=== PATIENT | female | born 1930 | race Caucasian/White ===

== ENCOUNTER 2017-02-07 12:07 | Observation (INO) ==
--- NOTE | 2017-02-07 13:17 | Emergency Department Note ---
Disposition Clinical Impression: Colonic mass Abdominal pain Qualifiers: Abdominal location: unspecified location Qualified Code(s): R10.9 - Unspecified abdominal pain Disposition: Admitted As Inpatient Condition: Fair Referrals: Sugar Reyes DO [Primary Care Provider] - Forms: ED Satisfaction Letter Time of Disposition: 17:06 Nausea/Vomiting/Diarrhea HPI - General Chief complaint: ED Nausea/Vomiting/Diarrhea Stated complaint: No BM since wednesday// Nausea Time Seen by Provider: 02/07/17 12:54 Source: patient Mode of arrival: ambulatory Limitations: no limitations Nursing Notes Reviewed: Yes Vital Signs Reviewed: Yes - History of Present Illness HPI Narrative: 87-year-old states she hasn't had a bowel movement since Wednesday which is 2 days ago in that she's had nausea and vomited once. Daughter states that the patient takes pain medication for her back and that she has intermittent problems with constipation. Patient did take a laxative last night and a suppository without improvement. Pt Subjective Complaint: abdominal pain, other (Constipation) Onset (ago): Just [employer] Quality: cramping Consistency: intermittent Improves with: nothing - Related Data Home Medications Medication Instructions Recorded Confirmed Fluticasone Propionate Nasal 50 mcg NS DAILY 01/16/17 01/16/17 [Flonase] Lisinopril [Zestril] 20 mg PO DAILY 01/16/17 01/16/17 Loratadine [Claritin] 10 mg PO DAILY 01/16/17 01/16/17 Pantoprazole Sodium 40 mg PO BID 01/16/17 01/16/17 Potassium Chloride [K-Tab ER] 20 meq PO TID 01/16/17 01/16/17 hydroCHLOROthiazide 25 mg PO DAILY 01/16/17 01/16/17 [Hydrochlorothiazide] Previous Rx's Medication Instructions Recorded OxyCODONE/APAP 5/325 [Percocet 1 each PO Q8HR PRN #12 tablet 01/16/17 5/325 MG] Ondansetron HCl [Zofran] 4 mg PO Q6H PRN #10 tablet 01/31/17 Allergies Allergy/AdvReac Type Severity Reaction Status Date / Time aspirin Allergy Hives Verified 01/31/17 13:37 Penicillins Allergy Hives Verified 01/31/17 13:37 ibuprofen AdvReac Itching Verified 01/31/17 13:37 tramadol AdvReac Nausea Verified 01/31/17 13:37 All systems ED: reviewed and negative except as stated. Constitutional: Denies: fever, chills, weakness, weight change Eyes: Denies: eye pain, eye discharge, vision change ENT ED: Denies: ear pain, throat pain, dental pain, hearing loss, epistaxis, congestion, dysphagia Cardiovascular: Denies: chest pain, palpitations, dyspnea on exertion, edema, syncope Respiratory: Denies: cough, dyspnea, wheezes, hemoptysis, stridor Gastrointestinal: Reports: abdominal pain, constipation. Denies: nausea, vomiting, diarrhea, hematemesis, melena, hematochezia Genitourinary: Denies: dysuria, frequency, hematuria, discharge Musculoskeletal: Denies: back pain, neck pain, arthralgia, myalgia Integumentary: Denies: rash, abrasion, lesions Neurological: Denies: headache, weakness, numbness, paresthesias, confusion, abnormal gait, vertigo Psychiatric: Denies: anxiety, depression, suicidal thoughts, homicidal thoughts , auditory hallucinations, visual hallucinations Endocrine: Denies: fatigue Hematological/Lymphatic: Denies: easy bleeding, easy bruising Allergic/Immunologic: Denies: facial swelling, urticaria Past Medical History - Past Medical History Medical history: Reports: cancer, GERD, hyperlipidemia, hypertension Psychiatric history: Reports: anxiety, depression - Social History Smoking Status: Never smoker Smokeless Tobacco Status: No Alcohol use: Reports: none Drug use: Reports: none Physical Exam - General Limitations: no limitations General appearance: alert - Head Head exam: atraumatic, normocephalic, normal inspection - Eye Eye exam: Present: normal appearance, PERRL, EOMI - ENT ENT exam: normal exam, normal oropharynx, mucous membranes moist - Neck Neck exam: Present: normal inspection, full ROM, trachea midline - Chest Chest inspection: Present: normal inspection, symmetric chest wall rise - Respiratory Respiratory exam: Present: normal lung sounds bilaterally - Cardiovascular Cardiovascular exam: Present: regular rate, normal rhythm, normal heart sounds - Abdominal Exam Abdominal exam: Present: soft, tenderness - Extremities Exam Extremities exam: Present: normal inspection, full ROM. Absent: tenderness, pedal edema - Expanded Lower Extremity Exam Neurovascular/Tendon exam: Absent: motor deficit, sensory deficit, tendon deficit - Back Exam Back exam: Present: normal inspection, full ROM. Absent: tenderness - Neurological Exam Neurological exam: Present: alert, oriented X3 - Psychiatric Psychiatric exam: Present: normal affect, normal mood - Skin Skin exam: Present: warm, dry, intact, normal color Course - Reevaluation(s) Reevaluation #1: 87-year-old comes in with abdominal pain not eating or drinking. Patient had constipation. CT scan does show thickening of the wall possible mass in the colon. The patient in light of the fact she's not eating or drinking will be admitted for IV fluids and further evaluation of her colon. Time: 17:05 - Consultations Consultation #1: Discussed with Dr. Lopez, admit Time: 17:06 Vital Signs Temperature 97.6 F 02/07/17 12:12 Pulse Rate 94 02/07/17 12:12 Respiratory Rate 18 02/07/17 12:12 Blood Pressure 172/91 02/07/17 12:12 O2 Sat by Pulse Oximetry 98 02/07/17 12:12 Temperature 97.6 F 02/07/17 12:12 Pulse Rate 69 02/07/17 16:54 Respiratory Rate 18 02/07/17 16:54 Blood Pressure 174/88 02/07/17 16:54 O2 Sat by Pulse Oximetry 98 02/07/17 16:54 Oxygen Delivery Oxygen Delivery Room Air Nausea/Vomiting/Diarrhea - Lab Data Lab results reviewed: Yes I reviewed the patient's lab results. Result diagrams: 02/07/17 13:29 02/07/17 13:29 Lab Results 02/07/17 02/07/17 02/07/17 Range/Units 13:29 13:29 13:29 WBC 9.4 (4.3-11.1) K/mcL RBC 3.98 (3.82-4.97) M/mcL Hgb 11.9 (11.5-15.4) g/dL Hct 34.2 L (35.3-44.9) % MCV 85.9 (83.0-100.0) fL MCH 29.9 (28.0-33.3) pg MCHC 34.8 (31.6-35.5) g/dL RDW 12.3 (11.5-14.5) % Plt Count 335 (140-400) K/mcL MPV 9.2 L (9.4-12.4) fL Immature Gran % 0.7 (0-4) % Seg Neutrophils % 77.1 % Lymphocytes % 14.1 % Monocytes % 7.7 % Eosinophils % 0.2 % Basophils % 0.2 % Neutrophils # 7.3 (1.6-8.9) K/mcL Lymphocytes # 1.3 (0.6-4.6) K/mcL Monocytes # 0.7 (0.0-1.3) K/mcL Eosinophils # 0.0 (0.0-0.6) K/mcL Basophils # 0.0 (0.0-0.2) K/mcL Sodium 127 L (136-145) mEq/L Potassium 3.4 L (3.5-4.5) mEq/L Chloride 92 L (98-109) mEq/L Carbon Dioxide 25 (19-29) mEq/L BUN 9 (7-20) mg/dL Creatinine 0.76 (0.57-1.11) mg/dL Est GFR ( Amer) > 60 (> 60) Est GFR (Non-Af Amer) > 60 (> 60) BUN/Creatinine Ratio 12 (6-26) Glucose 120 H (70-99) mg/dL Calculated Osmolality 264 L (280-300) Calcium 10.3 (8.6-10.8) mg/dL Total Bilirubin 0.4 (0.2-1.2) mg/dL Direct Bilirubin 0.2 (0.0-0.5) mg/dL Indirect Bilirubin 0.2 (0.0-1.2) mg/dL AST 14 (5-34) Units/L ALT 12 (0-55) Units/L Alkaline Phosphatase 64 (38-126) Units/L Serum Total Protein 6.6 (6.0-8.3) g/dL Albumin 3.3 L (3.5-5.0) g/dL Globulin 3.3 (2.4-3.5) g/dL Albumin/Globulin Ratio 1.0 L (1.1-2.2) Amylase 39 (25-125) Units/L Lipase 18 (8-78) Units/L Urine Color (Yellow) Urine Clarity (Clear) Urine pH (5.0-8.0) pH Units Ur Specific [place] (1.010-1.025) Urine Protein (Neg-Trace) mg/dL Urine Glucose (UA) (Normal) mg/dL Urine Ketones (Negative) mg/dL Urine Blood (Negative) Urine Nitrite (Negative) Urine Bilirubin (Negative) Urine Urobilinogen (Normal) mg/dL Ur Leukocyte Esterase (Negative) Ur Culture Indicated? (NO) 02/07/17 Range/Units 15:00 WBC (4.3-11.1) K/mcL RBC (3.82-4.97) M/mcL Hgb (11.5-15.4) g/dL Hct (35.3-44.9) % MCV (83.0-100.0) fL MCH (28.0-33.3) pg MCHC (31.6-35.5) g/dL RDW (11.5-14.5) % Plt Count (140-400) K/mcL MPV (9.4-12.4) fL Immature Gran % (0-4) % Seg Neutrophils % % Lymphocytes % % Monocytes % % Eosinophils % % Basophils % % Neutrophils # (1.6-8.9) K/mcL Lymphocytes # (0.6-4.6) K/mcL Monocytes # (0.0-1.3) K/mcL Eosinophils # (0.0-0.6) K/mcL Basophils # (0.0-0.2) K/mcL Sodium (136-145) mEq/L Potassium (3.5-4.5) mEq/L Chloride (98-109) mEq/L Carbon Dioxide (19-29) mEq/L BUN (7-20) mg/dL Creatinine (0.57-1.11) mg/dL Est GFR ( Amer) (> 60) Est GFR (Non-Af Amer) (> 60) BUN/Creatinine Ratio (6-26) Glucose (70-99) mg/dL Calculated Osmolality (280-300) Calcium (8.6-10.8) mg/dL Total Bilirubin (0.2-1.2) mg/dL Direct Bilirubin (0.0-0.5) mg/dL Indirect Bilirubin (0.0-1.2) mg/dL AST (5-34) Units/L ALT (0-55) Units/L Alkaline Phosphatase (38-126) Units/L Serum Total Protein (6.0-8.3) g/dL Albumin (3.5-5.0) g/dL Globulin (2.4-3.5) g/dL Albumin/Globulin Ratio (1.1-2.2) Amylase (25-125) Units/L Lipase (8-78) Units/L Urine Color Yellow (Yellow) Urine Clarity Clear (Clear) Urine pH 7.5 (5.0-8.0) pH Units Ur Specific [place] 1.010 (1.010-1.025) Urine Protein Negative (Neg-Trace) mg/dL Urine Glucose (UA) Normal (Normal) mg/dL Urine Ketones Negative (Negative) mg/dL Urine Blood Negative (Negative) Urine Nitrite Negative (Negative) Urine Bilirubin Negative (Negative) Urine Urobilinogen Normal (Normal) mg/dL Ur Leukocyte Esterase Negative (Negative) Ur Culture Indicated? NO (NO) - Radiology Data Radiology results reviewed: Yes I reviewed the patient's radiology results. Abdomen/Pelvis CT 02/07/17 13:19 IMPRESSION: 1. Anorectal wall thickening is unchanged and there is a moderate to large amount of rectal stool. Recommend disimpaction and correlation with endoscopy to exclude underlying mass. 2. Sigmoid diverticulosis without evidence for acute diverticulitis. D/ / Marcin Cosby MD / Marcin Cosby MD Interpreting Provider: Marcin Cosby MD
[2017-02-07] MEDS ORDERED: Ondansetron 4 MG/2 ML VIAL IVP ONE ×2 (13:37→16:07)
[2017-02-07 13:41] LABS: Basophils % 0.2 %; Eosinophils % 0.2 %; Hematocrit 34.2 % (35.3-44.9); Hemoglobin 11.9 g/dL (11.5-15.4); Immature Granulocytes % 0.7 % (0-4); Lymphocytes # 1.3 K/mcL (0.6-4.6); Lymphocytes % 14.1 %; Mean Corpuscular HGB Conc 34.8 g/dL (31.6-35.5); Mean Corpuscular Hemoglobin 29.9 pg (28.0-33.3); Mean Corpuscular Volume 85.9 fL (83.0-100.0); Mean Platelet Volume 9.2 fL (9.4-12.4); Monocytes # 0.7 K/mcL (0.0-1.3); Monocytes % 7.7 %; Neutrophils # 7.3 K/mcL (1.6-8.9); Platelet Count 335 K/mcL (140-400); Red Blood Count 3.98 M/mcL (3.82-4.97); Red Cell Distribution Width 12.3 % (11.5-14.5); Segmented Neutrophils % 77.1 %
[2017-02-07] MEDS ORDERED: 0.9 % Sodium Chloride 1,000 ML IVC SCH (13:45)
[2017-02-07 13:56] LABS: BUN/Creatinine Ratio 12 (6-26); Blood Urea Nitrogen 9 mg/dL (7-20); Calcium 10.3 mg/dL (8.6-10.8); Carbon Dioxide 25 mEq/L (19-29); Chloride 92 mEq/L (98-109); Glucose 120 mg/dL (70-99); Lipase 18 Units/L (8-78); Osmolality,Calculated 264 (280-300); Potassium 3.4 mEq/L (3.5-4.5); Sodium 127 mEq/L (136-145); eGFR For African Americans > 60 (> 60); eGFR For Non-African Americans > 60 (> 60)
[2017-02-07 13:57] LABS: Albumin 3.3 g/dL (3.5-5.0); Bilirubin,Direct 0.2 mg/dL (0.0-0.5); Bilirubin,Indirect 0.2 mg/dL (0.0-1.2); Bilirubin,Total 0.4 mg/dL (0.2-1.2); Globulin 3.3 g/dL (2.4-3.5); Total Protein 6.6 g/dL (6.0-8.3)
[2017-02-07] MEDS ORDERED: Milk and Molasses Enema 200 ML RC ONE (14:33)
[2017-02-07 15:07] LABS: Bilirubin,Urine Negative (Negative); Blood,Urine Negative (Negative); Clarity,Urine Clear (Clear); Color,Urine Yellow (Yellow); Glucose,Urine (UA) Normal (Normal); Ketones,Urine Negative (Negative); Leukocyte Esterase,Urine Negative (Negative); Nitrite,Urine Negative (Negative); PH,Urine 7.5 pH Units (5.0-8.0); Protein,Urine Negative (Neg-Trace); Urobilinogen,Urine Normal (Normal)
[2017-02-07] MEDS ORDERED: *HR* Morphine 2 MG/ML SYRINGE IVP ONE (16:07)
[2017-02-07] MEDS ORDERED: *HR* Morphine 2 MG/ML SYRINGE IVP PRN (19:18)
[2017-02-07] MEDS ORDERED: Ondansetron 4 MG/2 ML VIAL IVP PRN (19:18)
[2017-02-07] MEDS ORDERED: Acetaminophen 325 MG TABLET PO PRN (19:18)
[2017-02-07] MEDS ORDERED: Naloxone 0.4 MG/ML INJ IVP PRN (19:18)
--- NOTE | 2017-02-07 19:25 | Internal Med History&Physical ---
Date of Encounter: 02/07/17 Time of Encounter: 19:10 Assessment and Plan (1) Abdominal pain Current visit: No Status: Acute Acute abdominal pain and nausea - likely secondary to constipation and impacted stool Enema given in the ED Continue clear liquid diet, docusate Continue IV fluids IV Zofran when necessary, IV morphine when necessary, IV pantoprazole Repeat enema in a.m. CT abdomen - anorectal wall thickening and moderate to large amount of stool with sigmoid diverticulosis without evidence for diverticulitis advised correlation with endoscopy to exclude underlying mass Gen. surgery consult - for colonoscopy and possible mass Qualifiers: Abdominal location: lower abdomen, unspecified Qualified Code(s): R10.30 - Lower abdominal pain, unspecified (2) Hypertension Current visit: Yes Status: Chronic Essential hypertension, controlled, continue home meds, monitor Qualifiers: Hypertension type: essential hypertension Qualified Code(s): I10 - Essential (primary) hypertension (3) GERD (gastroesophageal reflux disease) Current visit: Yes Status: Chronic Continue pantoprazole Qualifiers: Esophagitis presence: without esophagitis Qualified Code(s): K21.9 - Gastro -esophageal reflux disease without esophagitis (4) Degenerative disc disease Current visit: Yes Status: Chronic Chronic low back pain secondary to degenerative disc disease Patient has been taking Oxycodone - likely causing constipation Qualifiers: Spinal region: lumbosacral Qualified Code(s): M51.37 - Other intervertebral disc degeneration, lumbosacral region (5) History of breast cancer Current visit: Yes Status: Resolved History of breast cancer status post surgery - in remission (6) History of prolapse of bladder Current visit: Yes Status: Chronic Status post surgery in 2007 - 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 Joseph is a 87 year old female with past medical history of hypertension, chronic back pain, GERD, hyperlipidemia, history of breast cancer and anxiety and depression. She presents to the ED with complaints of abdominal pain and nausea that is been going on for about 2-3 days. On examination patient is awake and alert. Not in any distress. Able to provide history. Mild discomfort due to abdominal pain. Daughter was at bedside and she provides history as well. Patient states her last bowel movement was about 2 days ago. Also complains of poor appetite over the past few days. She has had chronic problems with constipation ever since she has been on Oxycodone that she takes for chronic low back pain and also for shingles that was treated about 6 weeks ago. Daughter states the patient has had history of bladder bladder prolapse and has undergone surgery for this. Patient thinks that the bladder surgery that was done in 2007 may be causing her back pain and also causing her chronic constipation. Patient complains of lower abdominal pain. Rates it 4 out of 10. Describes it as cramping and diarrhea. Does not radiate. She does have nausea but no vomiting. Patient also complains of low back pain which is chronic, likely due to degenerative disc disease. Denies chest pain, denies palpitations, denies shortness of breath, denies headache or dizziness or cough. No aggravating or alleviating factors. No other associated symptoms. Initial evaluation in the ED revealed mild hypokalemia and also anorectal wall thickening and moderate amount of rectal stool with sigmoid diverticulosis without acute diverticulitis. Patient probably needs disimpaction. She has been given an enema in the ED and had a bowel movement which was small. Patient will be placed in observation. She will be on stool softeners and clear liquid diet. She may need another enema in the morning. Patient and daughter have been explained about her condition and planned care. Understood and agreed. No unanswered questions. CODE STATUS full code. Past Med Surg Social Fam HX - Past Medical History Medical history: cancer, GERD, hyperlipidemia, hypertension Psychiatric history: anxiety, depression - Past Surgical History Surgical History: breast surgery (For history of breast cancer), other (Surgery for bladder prolapse) - Social History Smoking Status: Never smoker Smokeless Tobacco Status: No Alcohol use: none Drug use: none Internal Medicine - H&P: Meds Lisinopril [Zestril] 20 mg PO DAILY 01/16/17 [History] OxyCODONE/APAP 5/325 [Percocet 5/325 MG] 1 each PO Q8HR PRN #12 tablet 01/16/17 [Rx] Pantoprazole Sodium 40 mg PO BID 01/16/17 [History] Potassium Chloride [K-Tab ER] 20 meq PO TID 01/16/17 [History] hydroCHLOROthiazide [Hydrochlorothiazide] 25 mg PO DAILY 01/16/17 [History] Ondansetron HCl [Zofran] 4 mg PO Q6H PRN #10 tablet 01/31/17 [Rx] Allergies aspirin Allergy (Verified 02/07/17 17:16) Gastrointestinal Upset Penicillins Allergy (Verified 02/07/17 17:16) Hives ibuprofen Adverse Reaction (Verified 02/07/17 17:16) Gastrointestinal Upset tramadol Adverse Reaction (Verified 02/07/17 17:16) Gastrointestinal Upset All Systems PM: A 10-system review of systems was performed and is negative for pertinent findings except as documented above in the HPI. - Constitutional Constitutional: weakness, no fatigue, no fever(s) - EENT Eyes: no blurry vision - Cardiovascular Cardiovascular ROS IM: no chest pain, no diaphoresis, no dyspnea, no dyspnea on exertion, no lightheadedness, no orthopnea, no palpitations, no syncope - Respiratory Respiratory: no cough, no dyspnea, no dyspnea on exertion, no wheezing, no chest congestion - Gastrointestinal Gastrointestinal: abdominal pain, bloating, constipation, cramping, nausea, no diarrhea, no hematemesis, no hematochezia, no melena, no vomiting - Genitourinary Genitourinary: no dysuria - Musculoskeletal Musculoskeletal ROS IM: back pain - Neurological Neurological ROS: no abnormal gait, no abnormal speech, no dizziness, no focal weakness, no numbness, no tingling - Constitutional Vitals: Temp Pulse Resp BP Pulse Ox 97.6 F 69 18 172/96 98 02/07/17 12:12 02/07/17 16:54 02/07/17 18:24 02/07/17 18:24 02/07/17 16:54 General appearance: Present: A&O X 3, pleasant, no acute distress, answers questions appropriately Exam: Generalized weakness, mild discomfort due to abdominal pain and constipation - Head Head exam: Present: atraumatic - Eye Eye exam: Present: EOMI - ENT ENT exam: Present: mucous membranes moist - Neck Neck exam general surgery: Present: supple - Respiratory Respiratory exam: Present: CTAB. Absent: rales, rhonchi, wheezes, tachypnea - Cardiovascular Cardiovascular exam: Present: RRR, +S1, +S2 - GI/Abdominal GI/Abdominal exam: Present: soft, tenderness (Mild epigastric and periumbilical and left lower quadrant tenderness), no peritoneal signs. Absent: distended, firm, guarding, rigid - Extremities Exam Extremities exam: Present: radial pulses palpable and symetrical. Absent: cyanotic, pedal edema, tenderness - Neurological Exam Neurological exam: Present: alert, oriented X3, no focal deficits Internal Med - H&P Results - Labs CBC & Chem 7: 02/07/17 13:29 02/07/17 13:29
[2017-02-07 19:49] LABS: INR 1.1; Prothrombin Time 12.3 Seconds (9.4-12.1)
[2017-02-07] MEDS: Pantoprazole 40 MG VIAL IVP SCH (22:35)
[2017-02-07] MEDS: 0.9 % Sodium Chloride 1,000 ML IVC SCH (22:35)
[2017-02-08] MEDS ORDERED: *HR* Promethazine 25 MG/ML VIAL IVP ONE (03:47)
[2017-02-08 04:00] LABS: Basophils % 0.3 %; Eosinophils # 0.1 K/mcL (0.0-0.6); Eosinophils % 0.6 %; Hematocrit 32.8 % (35.3-44.9); Hemoglobin 11.2 g/dL (11.5-15.4); Immature Granulocytes % 0.6 % (0-4); Lymphocytes # 1.6 K/mcL (0.6-4.6); Lymphocytes % 17.9 %; Mean Corpuscular HGB Conc 34.1 g/dL (31.6-35.5); Mean Corpuscular Hemoglobin 29.9 pg (28.0-33.3); Mean Corpuscular Volume 87.5 fL (83.0-100.0); Mean Platelet Volume 9.6 fL (9.4-12.4); Monocytes # 1.1 K/mcL (0.0-1.3); Monocytes % 11.7 %; Neutrophils # 6.2 K/mcL (1.6-8.9); Platelet Count 331 K/mcL (140-400); Red Blood Count 3.75 M/mcL (3.82-4.97); Red Cell Distribution Width 12.7 % (11.5-14.5); Segmented Neutrophils % 68.9 %
[2017-02-08 04:08] LABS: Alanine Aminotransferase 10 Units/L (0-55); Albumin 2.9 g/dL (3.5-5.0); Alkaline Phosphatase 58 Units/L (38-126); Aspartate Amino Transferase 12 Units/L (5-34); BUN/Creatinine Ratio 9 (6-26); Bilirubin,Total 0.5 mg/dL (0.2-1.2); Blood Urea Nitrogen 7 mg/dL (7-20); Calcium 9.7 mg/dL (8.6-10.8); Carbon Dioxide 24 mEq/L (19-29); Chloride 100 mEq/L (98-109); Globulin 2.9 g/dL (2.4-3.5); Glucose 99 mg/dL (70-99); Osmolality,Calculated 270 (280-300); Potassium 3.1 mEq/L (3.5-4.5); Sodium 131 mEq/L (136-145); Total Protein 5.8 g/dL (6.0-8.3); eGFR For African Americans > 60 (> 60); eGFR For Non-African Americans > 60 (> 60)
[2017-02-08] MEDS ORDERED: Famotidine 20 MG/2 ML VIAL IVP SCH (06:00)
[2017-02-08] MEDS: Pantoprazole 40 MG VIAL IVP SCH (08:05)
[2017-02-08] MEDS ORDERED: Lisinopril 20 MG TABLET PO SCH (09:00)
[2017-02-08] MEDS ORDERED: hydroCHLOROthiazide 25 MG TABLET PO SCH (09:00)
--- NOTE | 2017-02-08 09:06 | Discharge Summary ---
<Yohan Davis - Last Filed: 02/08/17 17:41> Date of Encounter: 02/08/17 Time of Encounter: 09:06 - Discharge Diagnosis (1) Abdominal pain Priority: Primary Status: Acute Comments: Acute abdominal pain and nausea - likely secondary to constipation and impacted stool CT abdomen - anorectal wall thickening and moderate to large amount of stool with sigmoid diverticulosis without evidence for diverticulitis advised correlation with endoscopy to exclude underlying mass Enema given in the ED Pt had BM today after docusate. She tolerated both a clear liquid diet and regular diet IV Zofran when necessary, IV morphine when necessary, IV pantoprazole Gen. surgery consulted plan for outpatient colonoscopy Qualifiers: Abdominal location: generalized Qualified Code(s): R10.84 - Generalized abdominal pain (2) Colonic mass Priority: Primary Status: Acute Comments: See above (3) Hypertension Priority: Secondary Status: Chronic Comments: Essential hypertension, controlled, continue home meds, monitor Qualifiers: Hypertension type: essential hypertension Qualified Code(s): I10 - Essential (primary) hypertension (4) GERD (gastroesophageal reflux disease) Priority: Secondary Status: Chronic Comments: Continue pantoprazole Qualifiers: Esophagitis presence: without esophagitis Qualified Code(s): K21.9 - Gastro -esophageal reflux disease without esophagitis (5) Degenerative disc disease Priority: Secondary Status: Chronic Comments: Patient in is on chronic opiates which is a contributing factor to chronic constipation. Qualifiers: Spinal region: lumbosacral Qualified Code(s): M51.37 - Other intervertebral disc degeneration, lumbosacral region (6) History of breast cancer Priority: Secondary Status: Resolved Comments: Continue to monitor (7) History of prolapse of bladder Priority: Secondary Status: Chronic Comments: No UTI (8) Abnormal CT of the abdomen Priority: Primary Status: Acute Comments: See above (9) DVT prophylaxis Priority: Primary Status: Acute Comments: SCDs. Patient seen and examined, plan discussed with and agreed upon with Dr. Underwood - Discharge Medications Prescriptions: Docusate [Colace] 100 mg PO BID PRN #30 capsule PRN Reason: Constipation Home Medications: Lisinopril [Zestril] 20 mg PO DAILY 01/16/17 [History] OxyCODONE/APAP 5/325 [Percocet 5/325 MG] 1 each PO Q8HR PRN #12 tablet 01/16/17 [Rx] Pantoprazole Sodium 40 mg PO BID 01/16/17 [History] Potassium Chloride [K-Tab ER] 20 meq PO TID 01/16/17 [History] hydroCHLOROthiazide [Hydrochlorothiazide] 25 mg PO DAILY 01/16/17 [History] Ondansetron HCl [Zofran] 4 mg PO Q6H PRN #10 tablet 01/31/17 [Rx] Docusate [Colace] 100 mg PO BID PRN #30 capsule 02/08/17 [Rx] Allergies/Adverse Reactions: Allergies aspirin Allergy (Verified 02/07/17 17:16) Gastrointestinal Upset Penicillins Allergy (Verified 02/07/17 17:16) Hives ibuprofen Adverse Reaction (Verified 02/07/17 17:16) Gastrointestinal Upset tramadol Adverse Reaction (Verified 02/07/17 17:16) Gastrointestinal Upset Procedures/tests Complete & Pending: Procedures Performed prior 72 hours Category Date Time Status ECG 12 lead ECG [ECG] Routine Y 02/07/17 19:18 Ordered Date of admission: 02/07/17 18:15 Primary care physician: Sugar Reyes DO Consults: 02/07/17 19:19 Consult to Physical Therapy [CONS] Routine Comment: Evaluate, develop and implement POC Reason for Consult: PT eval Consult to Resource Teacher [CONS] Routine Reason for SW Consult: d/c planning 02/07/17 19:22 Consult to Surgery [CONS] Routine Consulting Provider: [facility]y [facility] Reason for Consult: possible colon mass Call Completed: No Discharging clinician: Emigdio Underwood Anticipated date of discharge: 02/08/17 - Patient Status Disposition: Home, Self-Care Condition: Good Functional capacity at discharge: independent ambulation Overall status at discharge: patient is back to baseline - Discharge Instructions Follow Up With: Sugar Reyes DO [Primary Care Provider] - 02/12/17 10:00 am Additional Instructions: Follow up with PCP in 1 week. continue Colace when necessary - Diet and Activity Activity: increase activity as tolerated Diet: regular diet Hospital course: Ms. Joseph is a 87 year old female who presented to the hospital with complaints of severe constipation with associated abdominal pain. She also reports multiple episodes of nausea and vomiting. Denies any hematemesis or coffee-ground emesis. She reports that she has chronic constipation and does rely on taking stool softeners and laxatives daily. She typically has a bowel movement 3 times per day. Denies any melena or hematochezia She reports that since starting pain medicine 6 weeks ago, her constipation has significantly worsened. She states that she had been unable to have a bowel movement for 3 days prior to presenting to the hospital. She reported increasing weakness and fatigue. Denies any fevers or chills. She admits to a 15 pound weight loss over the last 6 weeks. Admits to decreased appetite. Denies any family history of colon cancer or polyps. Admits to occasional rectal bleeding and states that this is related to her hemorrhoids. She states that her last colonoscopy was complete 3-4 years ago and she does have a history of colon polyps. Her CT scan completed in the emergency department shows retained fecal material within the rectum. The radiologist's report that they were unable to rule out an underlying mass. Surgery was asked to see and evaluate the patient for recommendations. Recommend outpatient colonoscopy with Dr. Reed in the upcoming weeks to evaluate for colonic mass. - Time Spent with Patient Total time spent providing and/or coordinating discharge services: - Constitutional Vitals: Temp Pulse Resp BP Pulse Ox 98.0 F 69 16 143/79 97 02/08/17 08:00 02/08/17 08:00 02/08/17 08:00 02/08/17 08:00 02/08/17 08:00 General appearance: Present: A&O X 3, pleasant, no acute distress, answers questions appropriately - Head Head exam: Present: atraumatic, normocephalic - Eye Eye exam: Present: PERRL, conjuntiva pink, sclera anicteric Pupils: Present: PERRL - ENT ENT exam: Present: mucous membranes moist, normal oropharynx - Neck Neck exam general surgery: Present: supple, trachea midline. Absent: lymphadenopathy - Respiratory Respiratory exam: Present: CTAB. Absent: accessory muscle use, rales, rhonchi, wheezes - Cardiovascular Cardiovascular exam: Present: RRR, +S1, +S2. Absent: diastolic murmur, gallop, rubs, systolic murmur - GI/Abdominal GI/Abdominal exam: Present: normal bowel sounds, soft, no peritoneal signs. Absent: distended, guarding, mass, rigid, tenderness - Extremities Exam Extremities exam: Present: warm, radial pulses palpable and symetrical. Absent : calf tenderness, cyanotic, pedal edema - Neurological Exam Neurological exam: Present: CN II-XII intact, oriented X3, no focal deficits. Absent: pronater drift, facial droop, speech deficit - Skin Skin exam: Present: dry, intact <[email or web address] - Last Filed: 02/08/17 18:56> Date of Encounter: 02/08/17 - Discharge Diagnosis (1) Hyponatremia Priority: Secondary Status: Acute Comments: improved with IV fluids. (2) Hypokalemia Priority: Secondary Status: Acute Comments: improved with oral potassium. Procedures/tests Complete & Pending: Procedures Performed prior 72 hours Category Date Time Status ECG 12 lead ECG [ECG] Routine Y 02/07/17 19:18 Ordered Date of admission: 02/07/17 18:15 Primary care physician: Sugar Reyes DO Consults: 02/07/17 19:19 Consult to Physical Therapy [CONS] Routine Comment: Evaluate, develop and implement POC Reason for Consult: PT eval Consult to Resource Teacher [CONS] Routine Reason for SW Consult: d/c planning 02/07/17 19:22 Consult to Surgery [CONS] Routine Consulting Provider: Surgery [facility] Reason for Consult: possible colon mass Call Completed: No Hospital course: Ms. Joseph is a 87 year old female - Time Spent with Patient Total time spent providing and/or coordinating discharge services: - Constitutional Vitals: Temp Pulse Resp BP Pulse Ox 98 F 79 14 107/64 97 02/08/17 10:36 02/08/17 10:36 02/08/17 10:36 02/08/17 10:36 02/08/17 10:36 - Attending Attestation I examined this patient and my medical decision-making was reviewed with the Resident Physician, Dr Davis. I agree with the documented findings, disposition and treatment plan as described except to the extent set forth below. patient was admitted to our service Due to severe constipation. She has had multiple bowel movements today. Her pain has improved. We will start bowel regimen and we will discharge her home. we recommend referral to outpatient surgery for colonoscopy to follow-up on possible colonic mass.
[2017-02-08] MEDS: 0.9 % Sodium Chloride 1,000 ML IVC SCH (10:05)
[2017-02-08 10:39] VITALS: BP 107/64
--- NOTE | 2017-02-08 15:36 | General Surgery Consult Note ---
Date of Encounter: 02/08/17 Time of Encounter: 15:30 Assessment and Plan (1) Abnormal CT of the abdomen Current Visit: Yes Status: Acute CT shows retained fecal material within the rectum and unable to r/o a mass Recommend outpatient colonoscopy with Dr. Reed in the upcoming weeks to evaluate for colonic mass graphic artist to contact patient for date/time Office to mail instructions for bowel prep Will require IV meds for colonoscopy procedure History of Present Illness Consult date: 02/08/17 Requesting physician: Pierre Osorio History of present illness: Ms. Joseph is a very pleasant 87 -year-old female who presented to the hospital with complaints of severe constipation with associated abdominal pain. She also reports multiple episodes of nausea and vomiting. Denies any hematemesis or coffee-ground emesis. She reports that she has chronic constipation and does rely on taking stool softeners and laxatives daily. She typically has a bowel movement 3 times per day. Denies any melena or hematochezia She reports that since starting pain medicine 6 weeks ago, her constipation has significantly worsened. She states that she had been unable to have a bowel movement for 3 days prior to presenting to the hospital. She reported increasing weakness and fatigue. Denies any fevers or chills. She admits to a 15 pound weight loss over the last 6 weeks. Admits to decreased appetite. Denies any family history of colon cancer or polyps. Admits to occasional rectal bleeding and states that this is related to her hemorrhoids. She states that her last colonoscopy was complete 3-4 years ago and she does have a history of colon polyps. Her CT scan completed in the emergency department shows retained fecal material within the rectum. The radiologist's report that they were unable to rule out an underlying mass. We have been asked to see and evaluate the patient for recommendations. Past Med Surg Social Fam HX - Past Medical History Source: patient, old records reviewed Medical history: cancer (right breast), GERD, hyperlipidemia, hypertension Psychiatric history: anxiety, depression - Past Surgical History Surgical History: breast surgery (For history of breast cancer (right)), cholecystectomy, MIMI/BSO, other (Surgery for bladder prolapse X 3; hemorrhoidectomy; EGD/colonoscopy 3-4 years ago) - Social History Smoking Status: Never smoker Smokeless Tobacco Status: No Alcohol use: none Drug use: none - Family History Mother Hx Family Cancer: Yes (kidney cancer) Medications and Allergies Lisinopril [Zestril] 20 mg PO DAILY 01/16/17 [History] OxyCODONE/APAP 5/325 [Percocet 5/325 MG] 1 each PO Q8HR PRN #12 tablet 01/16/17 [Rx] Pantoprazole Sodium 40 mg PO BID 01/16/17 [History] Potassium Chloride [K-Tab ER] 20 meq PO TID 01/16/17 [History] hydroCHLOROthiazide [Hydrochlorothiazide] 25 mg PO DAILY 01/16/17 [History] Ondansetron HCl [Zofran] 4 mg PO Q6H PRN #10 tablet 01/31/17 [Rx] Docusate [Colace] 100 mg PO BID PRN #30 capsule 02/08/17 [Rx] Allergies aspirin Allergy (Verified 02/07/17 17:16) Gastrointestinal Upset Penicillins Allergy (Verified 02/07/17 17:16) Hives ibuprofen Adverse Reaction (Verified 02/07/17 17:16) Gastrointestinal Upset tramadol Adverse Reaction (Verified 02/07/17 17:16) Gastrointestinal Upset Review of Systems All systems PM: reviewed and no additional remarkable complaints except as stated (in the HPI) All systems PM: A 10-system review of systems was performed and is negative for pertinent findings except as documented above in the HPI. General Surgery Exam Initial Vital Signs Temp Pulse Resp BP Pulse Ox 97.6 F 94 18 172/91 98 02/07/17 12:12 02/07/17 12:12 02/07/17 12:12 02/07/17 12:12 02/07/17 12:12 - General physical appearance well developed, well nourished, no distress, no pain - Eyes normal ocular movement - ENT normal mucosa, atraumatic, normocephalic - Respiratory normal expansion, normal respiratory effort, clear to auscultation - Cardiovascular Cardiovascular exam: Present: RRR, 15, 16 - Abdomen Abdomen general surgery: Present: bowel sounds present, soft, non tender - Integumentary Integumentary general surgery: Present: warm and dry - Neurologic Present: CN 2-12 grossly intact - Musculoskeletal Present: normal gait, normal posture - Psychiatric Psychiatric general surgery: Present: appropriate, oriented to person, oriented to place, oriented to time, speech is normal, memory intact Exam Initial Vital Signs Temp Pulse Resp BP Pulse Ox 97.6 F 94 18 172/91 98 02/07/17 12:12 02/07/17 12:12 02/07/17 12:12 02/07/17 12:12 02/07/17 12:12 Results - Labs 02/08/17 03:10 02/08/17 03:10 Abnormal lab results RBC 3.75 M/mcL (3.82-4.97) L 02/08/17 03:10 Hgb 11.2 g/dL (11.5-15.4) L 02/08/17 03:10 Hct 32.8 % (35.3-44.9) L 02/08/17 03:10 PT 12.3 Seconds (9.4-12.1) H 02/07/17 19:39 Sodium 131 mEq/L (136-145) L 02/08/17 03:10 Potassium 3.1 mEq/L (3.5-4.5) L 02/08/17 03:10 Calculated Osmolality 270 (280-300) L 02/08/17 03:10 Serum Total Protein 5.8 g/dL (6.0-8.3) L 02/08/17 03:10 Albumin 2.9 g/dL (3.5-5.0) L 02/08/17 03:10 Albumin/Globulin Ratio 1.0 (1.1-2.2) L 02/08/17 03:10 Diabetes panel 02/08/17 Range/Units 03:10 Sodium 131 L (136-145) mEq/L Potassium 3.1 L (3.5-4.5) mEq/L Chloride 100 (98-109) mEq/L Carbon Dioxide 24 (19-29) mEq/L BUN 7 (7-20) mg/dL Creatinine 0.74 (0.57-1.11) mg/dL Glucose 99 (70-99) mg/dL Calcium 9.7 (8.6-10.8) mg/dL AST 12 (5-34) Units/L ALT 10 (0-55) Units/L Alkaline Phosphatase 58 (38-126) Units/L Albumin 2.9 L (3.5-5.0) g/dL Calcium panel 02/08/17 Range/Units 03:10 Calcium 9.7 (8.6-10.8) mg/dL Albumin 2.9 L (3.5-5.0) g/dL Pituitary panel 02/08/17 Range/Units 03:10 Sodium 131 L (136-145) mEq/L Potassium 3.1 L (3.5-4.5) mEq/L Chloride 100 (98-109) mEq/L Carbon Dioxide 24 (19-29) mEq/L BUN 7 (7-20) mg/dL Creatinine 0.74 (0.57-1.11) mg/dL Glucose 99 (70-99) mg/dL Calcium 9.7 (8.6-10.8) mg/dL Adrenal panel 02/08/17 Range/Units 03:10 Sodium 131 L (136-145) mEq/L Potassium 3.1 L (3.5-4.5) mEq/L Chloride 100 (98-109) mEq/L Carbon Dioxide 24 (19-29) mEq/L BUN 7 (7-20) mg/dL Creatinine 0.74 (0.57-1.11) mg/dL Glucose 99 (70-99) mg/dL Calcium 9.7 (8.6-10.8) mg/dL Total Bilirubin 0.5 (0.2-1.2) mg/dL AST 12 (5-34) Units/L ALT 10 (0-55) Units/L Alkaline Phosphatase 58 (38-126) Units/L Albumin 2.9 L (3.5-5.0) g/dL All other labs normal. - Imaging CT scan - abdomen: report reviewed CT scan - pelvis: report reviewed Additional studies: Abdomen/Pelvis CT 02/07/17 13:19 IMPRESSION: 1. Anorectal wall thickening is unchanged and there is a moderate to large amount of rectal stool. Recommend disimpaction and correlation with endoscopy to exclude underlying mass. 2. Sigmoid diverticulosis without evidence for acute diverticulitis. D/ / Marcin Cosby MD / Marcin Cosby MD Interpreting Provider: Marcin Cosby MD Consult Discharge Plan - Plan Referrals: Sugar Reyes DO [Primary Care Provider] - 02/12/17 10:00 am Prescriptions: Docusate [Colace] 100 mg PO BID PRN #30 capsule PRN Reason: Constipation
--- NOTE | 2017-02-09 16:07 | Electrocardiograph Report ---
[place] [id number] Test Date: 2017-02-08 Pat Name: Natalie Joseph Department: 113 Room: 3B11 Gender: F [employer] Supervisor: : [id number] Requested By: Emigdio Underwood Order Number: [id number] Reading MD: Troy Suarez Measurements Intervals [place] Rate: 69 P: 30 UT: 169 QRS: 1 QRSD: 102 T: 49 QT: 377 QTc: 396 Interpretive Statements SINUS RHYTHM Electronically Signed On 02-09-2017 16:06:13 EDT by Troy Suarez
== END 2017-02-08 17:36 | disposition home or self-care (01) ==
LOC: EMEROO 12:07 → 3BNU 12:07 → SUATTDRO 18:15 → 3BNU 18:45
PROVIDERS: ADMIT Family Medicine; ATTEND Internal Medicine